=== PATIENT | female | born 1985 | race Caucasian/White ===

== ENCOUNTER → 2019-09-07 | Outpatient (CLI) | payer BC ==
--- NOTE | 2019-09-07 10:03 | US ---
EXAMINATION TYPE: US thyroid st tissue head/neck DATE OF EXAM: 09/07/2019 COMPARISON: NONE CLINICAL HISTORY: E04.1 Nontoxic single thyroid nodule. Patient stated neck palpable was noted by ref erring physician. GLAND SIZE: Right Lobe: 5.2 x 1.5 x 1.2 cm Overall Parenchyma: homogenous Left Lobe: 4.2 x 1.5 x 1.2 cm Overall Parenchyma: homogeneous Isthmus Thickness: 0.2 cm NODULES RIGHT: # of nodules measured on right: 0 LEFT: # of nodules measured on left: 1 1. 0.5 X 0.5 x 0.5 cm hypoechoic mixed nodule at the mid pole with margins. This nodule is wider a s is tall and shows intranodular vascularity. ISTHMUS: # of nodules measured in the isthmus: 0 Bilateral neck scanned: no evidence of lymphadenopathy. IMPRESSION: Subcentimeter solitary left thyroid nodule. Surveillance is recommended in 12 months with follow-up thyroid ultrasound. Thyroid gland is mildly enlarged.
== END | disposition home or self-care (01) ==
LOC: RADUSWWP 09:28
PROVIDERS: ATTEND Family Medicine
DX: E04.1 Nontoxic single thyroid nodule (principal)
CPT/HCPCS: 76536

== ENCOUNTER → 2022-07-07 | Outpatient (CLI) | payer BC ==
[2022-07-07 08:37] LABS: HCG,Quantitative Serum 977.8 mIU/mL
== END | disposition home or self-care (01) ==
LOC: LABWHC1 07:21
PROVIDERS: ATTEND Obstetrics & Gynecology Reproductive Endocrinology
DX: O09.811 Supervision of pregnancy resulting from assisted reproductive technology, first trimester (principal); Z3A.00 Weeks of gestation of pregnancy not specified
CPT/HCPCS: 36415; 82670; 84144; 84443; 84702

== ENCOUNTER → 2022-07-09 | Outpatient (CLI) | payer BC | END | disposition home or self-care (01) | LOC: LABWHC1 07:17 | PROVIDERS: ATTEND Obstetrics & Gynecology Reproductive Endocrinology | DX: O09.811 Supervision of pregnancy resulting from assisted reproductive technology, first trimester (principal); Z3A.00 Weeks of gestation of pregnancy not specified | CPT/HCPCS: 36415; 82670; 84144; 84702 ==

== ENCOUNTER → 2022-07-16 | Outpatient (CLI) | payer BC | END | disposition home or self-care (01) | LOC: LABWHC1 10:28 | PROVIDERS: ATTEND Obstetrics & Gynecology Reproductive Endocrinology | DX: Z53.9 Procedure and treatment not carried out, unspecified reason (principal) ==